=== PATIENT | female | born 1970 | race African-American/Black ===

== ENCOUNTER 2018-03-18 15:38 | Emergency (ER) | payer OTHER ==
[~2018-03-18] VITALS: Ht 160 cm; Wt 66.2 kg
[2018-03-18 18:44] VITALS: BP 148/79
== END 2018-03-18 19:06 | disposition home or self-care (01) ==
LOC: ER 15:38
DX: S80.02XA Contusion of left knee, initial encounter (principal); I10 Essential (primary) hypertension; X58.XXXA Exposure to other specified factors, initial encounter; Y93.89 Activity, other specified; Y99.8 Other external cause status; Y92.89 Other specified places as the place of occurrence of the external cause
CPT/HCPCS: 29505; 73562